=== PATIENT | male | born 1965 | race Hispanic/Latino ===

== ENCOUNTER → 2017-11-15 | Outpatient (CLI) | payer BC | END | disposition home or self-care (01) | LOC: SHCH 15:31 | PROVIDERS: ATTEND Internal Medicine Cardiovascular Disease | DX: I10 Essential (primary) hypertension (principal) | CPT/HCPCS: 93306 ==

== ENCOUNTER 2018-05-09 15:20 | Inpatient (IN) | payer BC ==
[~2018-05-09] VITALS: Ht 175.3 cm; Wt 99.7 kg
[2018-05-09] MEDS ORDERED: SODIUM CHLORIDE 0.9% 1000ML 1,000 ML IV ONE (15:57)
[2018-05-09] MEDS ORDERED: ZOSYN 3.375GM+NS 50ML 50 ML IV ONE (15:57)
[2018-05-09] MEDS ORDERED: SODIUM CHLORIDE 0.9% 50 ML IV ONE (15:58)
[2018-05-09] MEDS ORDERED: FENTANYL CITRATE PF 50 MCG/1 ML 2ML VIAL ONE (15:58)
[2018-05-09 16:00] LABS: BASOPHILS % (AUTO) 0.1 % (0.0-5.0); HEMATOCRIT 35.2 % (42-54); LYMPHOCYTES % (AUTO) 3.2 % (21.0-51.0); MEAN CORPUSCULAR HEMOGLOBIN 26.4 pg (27.0-33.0); MEAN CORPUSCULAR HGB CONC 33.9 g/dL (32.0-36.0); MEAN CORPUSCULAR VOLUME 77.9 fL (79-99); MONOCYTES % (AUTO) 3.9 % (3.0-13.0); NEUTROPHILS % (AUTO) 92.8 % (40.0-77.0); PLATELET COUNT (AUTO) 501 K/uL (130-400); RED BLOOD CELL COUNT(AUTO) 4.51 MIL/uL (4.50-6.20); RED CELL DISTRIBUTION WIDTH 13.8 % (11.0-15.5); WHITE BLOOD COUNT (AUTO) 25.9 K/uL (4.8-10.8)
[2018-05-09 16:21] LABS: BILIRUBIN,TOTAL 0.6 mg/dL (0.2-1.0); CREATININE 1.6 mg/dL (0.5-1.5); POTASSIUM 4.2 mmol/L (3.5-5.1); TOTAL PROTEIN, SERUM 7.6 g/dL (6.0-8.3)
[2018-05-09] MEDS ORDERED: SODIUM CHLORIDE 0.9% 1000ML 2,000 ML IV ONE (16:40)
[2018-05-09] MEDS ORDERED: VANCOMYCIN 1GM+NS 250ML 250 ML IV ONE (16:42)
[2018-05-09 16:49] LABS: INR 1.02 (0.85-1.15); PARTIAL THROMBOPLASTIN TIME 32.5 SEC (26.3-35.5); PROTHROMBIN TIME 10.7 SEC (9.6-11.6)
[2018-05-09] MEDS ORDERED: VANCOMYCIN 1GM+NS 250ML 250 ML IV SCH (17:15)
[2018-05-09] MEDS ORDERED: ACETAMINOPHEN 325 MG TAB PO PRN (17:15)
[2018-05-09] MEDS ORDERED: ONDANSETRON HCL MDV 20ML 2 MG/ML VIAL IVP PRN (17:15)
[2018-05-09] MEDS ORDERED: DEXTROSE 50%-WATER 50 ML DISP.SYRIN IV PRN (17:30)
[2018-05-09] MEDS ORDERED: GLUCAGON 1MG KIT 1 MG ML IM PRN (17:30)
[2018-05-09] MEDS: SODIUM CHLORIDE 0.9% 1000ML 1,000 ML IV SCH (20:00)
[2018-05-09 20:55] VITALS: BP 138/77
[2018-05-09] MEDS ORDERED: ZOSYN 3.375GM+NS 50ML 50 ML IV SCH (21:00)
[2018-05-09] MEDS ORDERED: VANCOMYCIN PROTOCOL PER PHARMACY IV SCH (21:15)
[2018-05-09] MEDS: HYDROCODONE/ACETAMINOPHEN 5/325 MG TAB PO PRN (21:41)
[2018-05-09] MEDS: VANCOMYCIN 750MG + NS 250 ML IV SCH ×2 (23:10)
[2018-05-09] MEDS: FAMOTIDINE 20MG TAB 20 MG TAB PO SCH (23:25)
[2018-05-10] VITALS (24 sets, daily range): BP systolic 97–137; BP diastolic 62–80
[2018-05-10] MEDS: ZOSYN 3.375GM+NS 50ML 50 ML IV SCH ×4 (01:28→23:52)
[2018-05-10] MEDS ORDERED: ATOR10 PO (03:31)
[2018-05-10] MEDS ORDERED: METF-444 PO (03:31)
[2018-05-10] MEDS ORDERED: TYL3 PO (03:31)
[2018-05-10] MEDS ORDERED: METR500T4 PO (03:31)
[2018-05-10] MEDS ORDERED: LOSA100T20 PO (03:31)
[2018-05-10] MEDS ORDERED: SULF1TAB3 PO (03:31)
[2018-05-10] MEDS ORDERED: ASPI-555 PO (03:31)
[2018-05-10 05:23] LABS: BASOPHILS % (AUTO) 0.2 % (0.0-5.0); HEMATOCRIT 32.2 % (42-54); LYMPHOCYTES % (AUTO) 4.1 % (21.0-51.0); MEAN CORPUSCULAR HEMOGLOBIN 25.3 pg (27.0-33.0); MEAN CORPUSCULAR HGB CONC 32.7 g/dL (32.0-36.0); MEAN CORPUSCULAR VOLUME 77.4 fL (79-99); MONOCYTES % (AUTO) 4.4 % (3.0-13.0); NEUTROPHILS % (AUTO) 91.3 % (40.0-77.0); PLATELET COUNT (AUTO) 414 K/uL (130-400); RED BLOOD CELL COUNT(AUTO) 4.16 MIL/uL (4.50-6.20); RED CELL DISTRIBUTION WIDTH 14.2 % (11.0-15.5); WHITE BLOOD COUNT (AUTO) 22.2 K/uL (4.8-10.8)
[2018-05-10 05:39] LABS: ALBUMIN 1.7 g/dL (3.5-5.0); BILIRUBIN,TOTAL 0.5 mg/dL (0.2-1.0); POTASSIUM 4.7 mmol/L (3.5-5.1); TOTAL PROTEIN, SERUM 6.4 g/dL (6.0-8.3)
[2018-05-10 05:43] LABS: HEMOGLOBIN A1C 8.3 % (4.0-6.0)
[2018-05-10] MEDS: SODIUM CHLORIDE 0.9% 1000ML 1,000 ML IV SCH (06:00)
[2018-05-10] MEDS: ENOXAPARIN SODIUM 40 MG/0.4 ML SYRINGE SQ SCH (09:00)
[2018-05-10] MEDS ORDERED: LACTULOSE 20 GM/30 ML UDCUP PO PRN (09:00)
[2018-05-10] MEDS: FAMOTIDINE 20MG TAB 20 MG TAB PO SCH ×2 (09:00→21:38)
[2018-05-10] MEDS: VANCOMYCIN 750MG + NS 250 ML IV SCH ×2 (10:35)
[2018-05-10] MEDS ORDERED: COMPOUND IV REFRIGERATED 1 EACH IVSOLN MISC PRN (11:45)
[2018-05-10] MEDS ORDERED: FENTANYL CITRATE PF 50 MCG/1 ML 2ML VIAL ONE (12:06)
[2018-05-10] MEDS ORDERED: MIDAZOLAM HCL 1 MG/ML 2ML VIAL ONE (12:06)
[2018-05-10] MEDS: INSULIN HUMULIN R 100 UNIT/ML 3ML SQ SCH ×2 (16:47→21:00)
[2018-05-10] MEDS ORDERED: VANCOMYCIN 1GM+NS 250ML IV ONE (21:15)
[2018-05-11] VITALS: BP 110/66
[2018-05-11 04:00] VITALS: BP 106/72
[2018-05-11] MEDS: VANCOMYCIN 750MG + NS 250 ML IV SCH ×6 (05:23→21:28)
[2018-05-11] MEDS: SODIUM CHLORIDE 0.9% 1000ML 1,000 ML IV SCH (05:23)
[2018-05-11 06:05] LABS: BASOPHILS % (AUTO) 0.1 % (0.0-5.0); EOSINOPHILS % (AUTO) 0.3 % (0.0-8.0); HEMATOCRIT 27.5 % (42-54); LYMPHOCYTES % (AUTO) 5.2 % (21.0-51.0); MEAN CORPUSCULAR HEMOGLOBIN 26.2 pg (27.0-33.0); MEAN CORPUSCULAR HGB CONC 33.5 g/dL (32.0-36.0); MEAN CORPUSCULAR VOLUME 78.3 fL (79-99); MONOCYTES % (AUTO) 4.9 % (3.0-13.0); NEUTROPHILS % (AUTO) 89.5 % (40.0-77.0); PLATELET COUNT (AUTO) 486 K/uL (130-400); RED BLOOD CELL COUNT(AUTO) 3.51 MIL/uL (4.50-6.20); RED CELL DISTRIBUTION WIDTH 14.2 % (11.0-15.5); WHITE BLOOD COUNT (AUTO) 17.9 K/uL (4.8-10.8)
[2018-05-11 06:17] LABS: CREATININE 0.9 mg/dL (0.5-1.5); POTASSIUM 4.1 mmol/L (3.5-5.1)
[2018-05-11] MEDS: INSULIN HUMULIN R 100 UNIT/ML 3ML SQ SCH ×4 (06:46→21:29)
[2018-05-11 08:00] VITALS: BP 111/70
[2018-05-11] MEDS: ZOSYN 3.375GM+NS 50ML 50 ML IV SCH ×2 (09:55→16:25)
[2018-05-11] MEDS: FAMOTIDINE 20MG TAB 20 MG TAB PO SCH ×2 (09:56→21:28)
[2018-05-11] MEDS: ENOXAPARIN SODIUM 40 MG/0.4 ML SYRINGE SQ SCH (09:56)
[2018-05-11 11:00] VITALS: BP 106/65
[2018-05-11] MEDS: HYDROCODONE/ACETAMINOPHEN 5/325 MG TAB PO PRN (11:58)
[2018-05-11 16:00] VITALS: BP_SYST 100; BP_SYST 140; BP_DIAS 70; BP_DIAS 74
[2018-05-11 20:00] VITALS: BP 130/74
[2018-05-12] VITALS: BP 114/79
[2018-05-12] MEDS: ZOSYN 3.375GM+NS 50ML 50 ML IV SCH ×4 (01:41→23:25)
[2018-05-12 04:19] VITALS: BP 113/67
[2018-05-12 04:27] LABS: BASOPHILS % (AUTO) 0.5 % (0.0-5.0); HEMATOCRIT 28.8 % (42-54); LYMPHOCYTES % (AUTO) 9.7 % (21.0-51.0); MEAN CORPUSCULAR HEMOGLOBIN 25.6 pg (27.0-33.0); MEAN CORPUSCULAR HGB CONC 33.1 g/dL (32.0-36.0); MEAN CORPUSCULAR VOLUME 77.5 fL (79-99); MONOCYTES % (AUTO) 6.8 % (3.0-13.0); PLATELET COUNT (AUTO) 503 K/uL (130-400); RED BLOOD CELL COUNT(AUTO) 3.71 MIL/uL (4.50-6.20); WHITE BLOOD COUNT (AUTO) 13.9 K/uL (4.8-10.8)
[2018-05-12 04:44] LABS: CREATININE 0.9 mg/dL (0.5-1.5); POTASSIUM 3.6 mmol/L (3.5-5.1)
[2018-05-12] MEDS: VANCOMYCIN 750MG + NS 250 ML IV SCH ×4 (06:25→23:21)
[2018-05-12] MEDS: INSULIN HUMULIN R 100 UNIT/ML 3ML SQ SCH ×4 (06:29→23:31)
[2018-05-12 07:00] VITALS: BP 127/76
[2018-05-12] MEDS: SODIUM CHLORIDE 0.9% 1000ML 1,000 ML IV SCH ×3 (08:00→23:34)
[2018-05-12] MEDS: FAMOTIDINE 20MG TAB 20 MG TAB PO SCH ×2 (09:22→23:26)
[2018-05-12] MEDS: ENOXAPARIN SODIUM 40 MG/0.4 ML SYRINGE SQ SCH (09:23)
[2018-05-12 11:00] VITALS: BP 111/65
[2018-05-12] MEDS: HONEY 1 APPL/ML TUBE TP SCH ×2 (12:30→23:44)
[2018-05-12] MEDS ORDERED: VANCOMYCIN 1GM+NS 250ML 250 ML IV SCH (14:00)
[2018-05-12 16:00] VITALS: BP 126/78
[2018-05-12 20:33] VITALS: BP 120/79
[2018-05-13 00:46] VITALS: BP 131/83
[2018-05-13] MEDS: SODIUM CHLORIDE 0.9% 1000ML 1,000 ML IV SCH ×3 (04:00→13:47)
[2018-05-13 04:55] VITALS: BP 137/86
[2018-05-13] MEDS: INSULIN HUMULIN R 100 UNIT/ML 3ML SQ SCH ×3 (05:58→17:11)
[2018-05-13] MEDS: VANCOMYCIN 750MG + NS 250 ML IV SCH ×4 (06:11→13:49)
[2018-05-13 06:12] LABS: BASOPHILS % (AUTO) 0.4 % (0.0-5.0); EOSINOPHILS % (AUTO) 0.5 % (0.0-8.0); HEMATOCRIT 27.4 % (42-54); LYMPHOCYTES % (AUTO) 10.2 % (21.0-51.0); MEAN CORPUSCULAR HEMOGLOBIN 26.1 pg (27.0-33.0); MEAN CORPUSCULAR HGB CONC 33.6 g/dL (32.0-36.0); MEAN CORPUSCULAR VOLUME 77.6 fL (79-99); MONOCYTES % (AUTO) 7.9 % (3.0-13.0); PLATELET COUNT (AUTO) 586 K/uL (130-400); RED BLOOD CELL COUNT(AUTO) 3.53 MIL/uL (4.50-6.20); RED CELL DISTRIBUTION WIDTH 14.4 % (11.0-15.5); WHITE BLOOD COUNT (AUTO) 14.1 K/uL (4.8-10.8)
[2018-05-13 06:24] LABS: CREATININE 0.7 mg/dL (0.5-1.5); POTASSIUM 3.7 mmol/L (3.5-5.1)
[2018-05-13 08:00] VITALS: BP 123/76
[2018-05-13] MEDS: FAMOTIDINE 20MG TAB 20 MG TAB PO SCH (08:53)
[2018-05-13] MEDS: ZOSYN 3.375GM+NS 50ML 50 ML IV SCH ×2 (08:54→16:18)
[2018-05-13] MEDS: ENOXAPARIN SODIUM 40 MG/0.4 ML SYRINGE SQ SCH (08:54)
[2018-05-13] MEDS: HONEY 1 APPL/ML TUBE TP SCH (08:57)
[2018-05-13 12:00] VITALS: BP 132/77
[2018-05-13] MEDS ORDERED: METRONIDAZOLE 500 MG TABLET PO SCH (14:37)
[2018-05-13 17:01] VITALS: BP 143/80
== END 2018-05-13 20:14 | DRG 871 ==
LOC: EDH 15:20 → EDHIP 17:11 → 3CH 19:47
PROVIDERS: ADMIT Hospitalist; ATTEND Hospitalist
PROC: 0Y9D0ZZ Drainage of Left Upper Leg, Open Approach (ICD-10-PCS; principal; 2018-05-10 12:15)
PROC: 3E02340 Introduction of Influenza Vaccine into Muscle, Percutaneous Approach (ICD-10-PCS; 2018-05-13)
DX: A41.9 Sepsis, unspecified organism (principal); E43 Unspecified severe protein-calorie malnutrition; E87.1 Hypo-osmolality and hyponatremia; L02.416 Cutaneous abscess of left lower limb; L03.116 Cellulitis of left lower limb; N18.2 Chronic kidney disease, stage 2 (mild); K21.9 Gastro-esophageal reflux disease without esophagitis; R65.20 Severe sepsis without septic shock; I12.9 Hypertensive chronic kidney disease with stage 1 through stage 4 chronic kidney disease, or unspecified chronic kidney disease; E87.8 Other disorders of electrolyte and fluid balance, not elsewhere classified; B95.2 Enterococcus as the cause of diseases classified elsewhere; B96.89 Other specified bacterial agents as the cause of diseases classified elsewhere; Z23 Encounter for immunization; E78.5 Hyperlipidemia, unspecified; R26.2 Difficulty in walking, not elsewhere classified; E11.65 Type 2 diabetes mellitus with hyperglycemia; E11.22 Type 2 diabetes mellitus with diabetic chronic kidney disease; E66.01 Morbid (severe) obesity due to excess calories; D64.9 Anemia, unspecified; Z83.3 Family history of diabetes mellitus; Z68.32 Body mass index [BMI] 32.0-32.9, adult
CPT/HCPCS: 36415; 71045; 73700; 80048; 80053; 80202; 82948; 83036; 83605; 85025; 85610; 85730; 87040; 87070; 87076; 87077; 87186; 87324; 93005; 93971; G0008; J1650; J1815; J2250; J2543; J3010; J3370; J7030; Q2038

== ENCOUNTER → 2018-06-11 | Outpatient (CLI) | payer BC ==
[~2018-06-11] MED LIST: ASPI-555 PO; ATOR10 PO; HONEY 1 APPL/ML TUBE TP ONE; LIDOCAINE HCL 2% JELLY 5 ML TP ONE; LOSA100T20 PO; METF-444 PO; METR500T4 PO; SULF1TAB3 PO; TYL3 PO
[2018-06-11 16:44] VITALS: BP 133/98
== END | disposition home or self-care (01) ==
LOC: WHH 14:45
PROVIDERS: ATTEND Family Medicine
DX: E11.622 Type 2 diabetes mellitus with other skin ulcer (principal); L97.122 Non-pressure chronic ulcer of left thigh with fat layer exposed; E11.22 Type 2 diabetes mellitus with diabetic chronic kidney disease; I12.9 Hypertensive chronic kidney disease with stage 1 through stage 4 chronic kidney disease, or unspecified chronic kidney disease; N18.2 Chronic kidney disease, stage 2 (mild); E78.5 Hyperlipidemia, unspecified; E66.01 Morbid (severe) obesity due to excess calories; E46 Unspecified protein-calorie malnutrition; K21.9 Gastro-esophageal reflux disease without esophagitis; E87.2 Acidosis; E87.1 Hypo-osmolality and hyponatremia; E87.8 Other disorders of electrolyte and fluid balance, not elsewhere classified; Z68.32 Body mass index [BMI] 32.0-32.9, adult
CPT/HCPCS: 11042; 82948; 97605; 99205

== ENCOUNTER → 2018-06-18 | Outpatient (CLI) | payer BC ==
[~2018-06-18] MED LIST changes: -HONEY 1 APPL/ML TUBE TP ONE; -LIDOCAINE HCL 2% JELLY 5 ML TP ONE; +METR-224 PO; -METR500T4 PO
[2018-06-18 16:17] VITALS: BP 130/88
== END | disposition home or self-care (01) ==
LOC: WHH 14:15
PROVIDERS: ATTEND Family Medicine
DX: T81.49XD Infection following a procedure, other surgical site, subsequent encounter (principal); E11.22 Type 2 diabetes mellitus with diabetic chronic kidney disease; I12.9 Hypertensive chronic kidney disease with stage 1 through stage 4 chronic kidney disease, or unspecified chronic kidney disease; N18.2 Chronic kidney disease, stage 2 (mild); E78.5 Hyperlipidemia, unspecified; E66.01 Morbid (severe) obesity due to excess calories; E46 Unspecified protein-calorie malnutrition; K21.9 Gastro-esophageal reflux disease without esophagitis; Z68.32 Body mass index [BMI] 32.0-32.9, adult; Y83.8 Other surgical procedures as the cause of abnormal reaction of the patient, or of later complication, without mention of misadventure at the time of the procedure
CPT/HCPCS: 11042; 97605

== ENCOUNTER → 2018-06-25 | Outpatient (CLI) | payer BC ==
[~2018-06-25] MED LIST changes: +LIDOCAINE HCL 2% JELLY 5 ML TP ONE
[2018-06-25 15:53] VITALS: BP 134/97
== END | disposition home or self-care (01) ==
LOC: WHH 13:25
PROVIDERS: ATTEND Family Medicine
DX: S71.102D Unspecified open wound, left thigh, subsequent encounter (principal); E11.22 Type 2 diabetes mellitus with diabetic chronic kidney disease; I12.9 Hypertensive chronic kidney disease with stage 1 through stage 4 chronic kidney disease, or unspecified chronic kidney disease; N18.2 Chronic kidney disease, stage 2 (mild); E78.5 Hyperlipidemia, unspecified; E66.01 Morbid (severe) obesity due to excess calories; E46 Unspecified protein-calorie malnutrition; K21.9 Gastro-esophageal reflux disease without esophagitis; Z68.32 Body mass index [BMI] 32.0-32.9, adult; X58.XXXD Exposure to other specified factors, subsequent encounter
CPT/HCPCS: 97605

== ENCOUNTER → 2018-06-28 | Outpatient (CLI) | payer BC ==
[~2018-06-28] MED LIST changes: +HONEY 1 APPL/ML TUBE TP ONE; -LIDOCAINE HCL 2% JELLY 5 ML TP ONE
[2018-06-28 16:02] VITALS: BP 137/98
== END | disposition home or self-care (01) ==
LOC: WHH 13:45
PROVIDERS: ATTEND Family Medicine
DX: T81.49XD Infection following a procedure, other surgical site, subsequent encounter (principal); E11.622 Type 2 diabetes mellitus with other skin ulcer; L97.122 Non-pressure chronic ulcer of left thigh with fat layer exposed; E11.22 Type 2 diabetes mellitus with diabetic chronic kidney disease; I12.9 Hypertensive chronic kidney disease with stage 1 through stage 4 chronic kidney disease, or unspecified chronic kidney disease; N18.2 Chronic kidney disease, stage 2 (mild); E78.5 Hyperlipidemia, unspecified; E66.01 Morbid (severe) obesity due to excess calories; E46 Unspecified protein-calorie malnutrition; K21.9 Gastro-esophageal reflux disease without esophagitis; Z68.32 Body mass index [BMI] 32.0-32.9, adult; Y83.8 Other surgical procedures as the cause of abnormal reaction of the patient, or of later complication, without mention of misadventure at the time of the procedure
CPT/HCPCS: 11042; A6196

== ENCOUNTER → 2018-07-02 | Outpatient (CLI) | payer BC ==
[~2018-07-02] MED LIST changes: -HONEY 1 APPL/ML TUBE TP ONE; +LIDOCAINE/PRILOCAINE CREAM 5GM TUBE TP ONE
[2018-07-02 15:11] VITALS: BP 133/95
== END | disposition home or self-care (01) ==
LOC: WHH 14:00
PROVIDERS: ATTEND Family Medicine
DX: T81.49XD Infection following a procedure, other surgical site, subsequent encounter (principal); E11.622 Type 2 diabetes mellitus with other skin ulcer; L97.122 Non-pressure chronic ulcer of left thigh with fat layer exposed; E11.22 Type 2 diabetes mellitus with diabetic chronic kidney disease; I12.9 Hypertensive chronic kidney disease with stage 1 through stage 4 chronic kidney disease, or unspecified chronic kidney disease; N18.2 Chronic kidney disease, stage 2 (mild); E78.5 Hyperlipidemia, unspecified; E66.01 Morbid (severe) obesity due to excess calories; E46 Unspecified protein-calorie malnutrition; K21.9 Gastro-esophageal reflux disease without esophagitis; Z68.32 Body mass index [BMI] 32.0-32.9, adult; Y83.8 Other surgical procedures as the cause of abnormal reaction of the patient, or of later complication, without mention of misadventure at the time of the procedure
CPT/HCPCS: 11042; A6196; J3490

== ENCOUNTER 2018-07-23 13:00 | Outpatient (CLI) | payer BC ==
[~2018-07-23 13:00] MED LIST changes: -LIDOCAINE/PRILOCAINE CREAM 5GM TUBE TP ONE; -LOSA100T20 PO; +LOSA100T58 PO; +METR-172 PO; -METR-224 PO
[2018-07-23 14:19] VITALS: BP 125/89
== END 2018-07-23 15:50 | disposition home or self-care (01) ==
LOC: WHH 13:00
PROVIDERS: ATTEND Family Medicine
DX: T81.49XD Infection following a procedure, other surgical site, subsequent encounter (principal); E11.622 Type 2 diabetes mellitus with other skin ulcer; L97.128 Non-pressure chronic ulcer of left thigh with other specified severity; E11.22 Type 2 diabetes mellitus with diabetic chronic kidney disease; I12.9 Hypertensive chronic kidney disease with stage 1 through stage 4 chronic kidney disease, or unspecified chronic kidney disease; N18.2 Chronic kidney disease, stage 2 (mild); E78.5 Hyperlipidemia, unspecified; E66.01 Morbid (severe) obesity due to excess calories; E46 Unspecified protein-calorie malnutrition; K21.9 Gastro-esophageal reflux disease without esophagitis; Z68.32 Body mass index [BMI] 32.0-32.9, adult; Y83.8 Other surgical procedures as the cause of abnormal reaction of the patient, or of later complication, without mention of misadventure at the time of the procedure
CPT/HCPCS: 99214